=== PATIENT | male | born 1970 | race Caucasian/White ===

== ENCOUNTER 2017-10-28 12:33 | Emergency (ER) | payer BC ==
[2017-10-28] MEDS: diphenhydrAMINE HCL 25 MG CAPSULE PO (13:55)
[2017-10-28] MEDS: predniSONE 20 MG TABLET PO (13:55)
== END 2017-10-28 13:59 | disposition home or self-care (01) ==
LOC: ER 12:33
DX: R22.0 Localized swelling, mass and lump, head (principal); K13.0 Diseases of lips
CPT/HCPCS: 99283; J7512; Q0163